=== PATIENT | female | born 1975 | race Caucasian/White ===

== ENCOUNTER 2017-12-31 16:57 | Emergency (ER) | payer BC ==
[~2017-12-31] VITALS: Ht 175.3 cm; Wt 78.5 kg
[2017-12-31] MEDS ORDERED: TORADOL 10 MG T10 MG PO (17:18)
[2017-12-31] MEDS ORDERED: PERCOCET PO (17:18)
[2017-12-31 17:26] VITALS: BP 122/82
[2018-03-13] MEDS ORDERED: MOBIC15 MG PO (13:13)
[2018-03-13] MEDS ORDERED: MEDROLDOSEPACK PO (13:14)
[2018-03-13] MEDS ORDERED: TUMERIC (14:03)
== END 2017-12-31 17:27 | disposition home or self-care (01) ==
LOC: M.ERS 16:57
DX: M54.5 Low back pain (principal)

== ENCOUNTER → 2018-03-13 | Outpatient (CLI) | payer BC ==
[~2018-03-13] MED LIST: MEDROLDOSEPACK PO; MOBIC15 MG PO; PERCOCET PO; TORADOL 10 MG T10 MG PO; TUMERIC
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
== END ==
LOC: M.PC 02:21
DX: M54.5 Low back pain (principal); M25.552 Pain in left hip; M79.1 Myalgia; I73.9 Peripheral vascular disease, unspecified

== ENCOUNTER → 2019-07-13 | Outpatient (CLI) | payer BC | LOC: M.PC 05:13 | DX: M51.36 Other intervertebral disc degeneration, lumbar region (principal); G89.29 Other chronic pain ==

== ENCOUNTER → 2019-07-17 | Outpatient (CLI) | payer BC | LOC: M.MRI 16:30 | DX: M51.16 Intervertebral disc disorders with radiculopathy, lumbar region (principal); M48.07 Spinal stenosis, lumbosacral region; G89.29 Other chronic pain ==

== ENCOUNTER → 2019-07-27 | Outpatient (CLI) | payer BC | END | disposition home or self-care (01) | LOC: M.PC 04:53 | DX: M54.5 Low back pain (principal); M47.816 Spondylosis without myelopathy or radiculopathy, lumbar region; Z98.890 Other specified postprocedural states; Z79.899 Other long term (current) drug therapy ==

== ENCOUNTER → 2019-08-03 | Outpatient (CLI) | payer BC | END | disposition home or self-care (01) | LOC: M.PC 01:15 | DX: M54.5 Low back pain (principal); M47.816 Spondylosis without myelopathy or radiculopathy, lumbar region; Z98.890 Other specified postprocedural states; Z79.899 Other long term (current) drug therapy ==

== ENCOUNTER → 2019-10-21 | Outpatient (CLI) | payer OTHER ==
[~2019-10-21] MED LIST changes: +MELOXICAM15 MG PO
== END ==
LOC: M.PC 12:46
DX: M47.816 Spondylosis without myelopathy or radiculopathy, lumbar region (principal); M51.36 Other intervertebral disc degeneration, lumbar region

== ENCOUNTER → 2020-07-27 | Outpatient (CLI) | payer OTHER | LOC: M.PC 08:08 | PROVIDERS: ATTEND Physical Medicine & Rehabilitation | DX: M54.5 Low back pain (principal) ==

== ENCOUNTER → 2020-09-08 | Outpatient (CLI) | payer OTHER | LOC: M.RAD 10:31 | PROVIDERS: ATTEND Family Medicine | DX: Z12.31 Encounter for screening mammogram for malignant neoplasm of breast (principal) ==